=== PATIENT | male | born 1975 | race Caucasian/White ===

== ENCOUNTER → 2019-05-24 | Outpatient (REF) | LOC: M LAB LCGH 10:09 | PROVIDERS: ATTEND Surgery | DX: K82.8 Other specified diseases of gallbladder (principal) ==

== ENCOUNTER → 2020-07-06 | Outpatient (REF) | payer BC ==
[2020-07-07 14:57] LABS: CREATININE, URINE 42.1 MG/DL; MALB URINE SIEMENS < 5.0 MG/L; MAU/CREAT RATIO 11.8 MCG/MG (0.0-30.0)
== END ==
LOC: M LAB REF 13:36
PROVIDERS: ATTEND Nurse Practitioner Family
DX: E11.9 Type 2 diabetes mellitus without complications (principal)